=== PATIENT | male | born 1975 | race Caucasian/White ===

== ENCOUNTER 2020-03-18 00:49 | Observation (INO) | payer BC ==
[2020-03-18] MEDS ORDERED: Nitroglycerin 0.4 MG Tab.SL ONE (00:53)
[2020-03-18] MEDS ORDERED: Aspirin 81 MG Tab.Chew ONE (00:53)
[2020-03-18] MEDS ORDERED: Ticagrelor 90 MG Tab PO ONE ×2 (00:54→01:01)
[2020-03-18] MEDS: Nitroglycerin 0.4 MG Tab.SL SL PRN ×2 (01:00→01:15)
[2020-03-18] MEDS ORDERED: Aspirin 81 MG Tab.Chew PO ONE (01:01)
[2020-03-18] MEDS ORDERED: Sodium Chloride 0.9% 10 ML Syringe FLUSH PRN (01:01)
[2020-03-18 01:16] LABS: PTT,PARTIAL THROMBOPLSTIN TIME 27.2 SEC (24.5-32.8)
[2020-03-18] MEDS ORDERED: LORazepam 2 MG/ML SDV IVPUSH ONE ×3 (01:30→07:30)
[2020-03-18 01:35] LABS: CHLORIDE,CL 101 mmol/L (98-107); SODIUM,NA 138 mmol/L (136-145)
[2020-03-18] MEDS ORDERED: Potassium Chloride 20 MEQ Tab.ER PO ONE ×6 (01:37→14:30)
[2020-03-18] MEDS ORDERED: Sodium Chloride 0.9% 1,000 ML IV ONE ×2 (01:38→05:30)
--- NOTE | 2020-03-18 01:52 | EDM.PDOC ---
ED HPI GENERAL MEDICAL PROBLEM - General Chief Complaint: Chest Pain Stated Complaint: full body shaking, dry mouth Time Seen by Provider: 03/18/20 01:08 Source of Information: Reports: Patient History Limitations: Reports: No Limitations - History of Present Illness INITIAL COMMENTS - FREE TEXT/NARRATIVE: Patient was reading Bible before bed and suddenly felt his heart race/chest pain centrally. Mild SOB. No sweating. [place] jittery/shaky all over. Took BP and pulse at home. Pulse around 160s on a pulse ox. BP elevated 160s/90s. Chest pain went away when pulse rate started to slow. gave him 50mg Metoprol as she herself has tachycardia issues. Says he has small episodes of fast heart rate at times but they do not cause chest pain or other symptoms and resolve on own quickly. No formal workup for these. Denies cardiac history/family hx CAD. Admits to large daily caffeine intake, including energy drinks. Had recent cold symptoms and subsequently negative Covid test last week. Did have negative stress test a few years ago - Related Data Allergies Allergy/AdvReac Type Severity Reaction Status Date / Time acetaminophen [From Percocet] Allergy Hives Verified 03/18/20 00:51 oxycodone HCl [From Percocet] Allergy Hives Verified 03/18/20 00:51 Home Meds: Home Meds . [No Known Home Meds] 03/18/20 [History] Past Medical History HEENT History: Reports: Impaired Vision Cardiovascular History: Reports: Arrhythmia (tachycardia) Gastrointestinal History: Reports: None - Past Surgical History GI Surgical History: Reports: Hernia, Inguinal Social & Family History - Tobacco Use Smoking Status *Q: Current Every Day Smoker Years of Tobacco use: 20 Packs/Tins Daily: 0.5 - Caffeine Use Caffeine Use: Reports: Coffee, Energy Drinks, Soda - Alcohol Use Alcohol Use History: Yes Alcohol Use Frequency: Rarely - Recreational Drug Use Recreational Drug Use: No - Living Situation & Occupation Living situation: Reports: with Family, Occupation: Employed ED ROS GENERAL - Review of Systems Review Of Systems: See Below Constitutional: Reports: Other (general shakiness) HEENT: Reports: No Symptoms Respiratory: Reports: Shortness of Breath. Denies: Wheezing, Pleuritic Chest Pain, Cough, Sputum, Hemoptysis Cardiovascular: Reports: Chest Pain, Palpitations. Denies: Dyspnea on Exertion, Edema, Lightheadedness, Syncope GI/Abdominal: Reports: No Symptoms : Reports: No Symptoms Musculoskeletal: Reports: No Symptoms Skin: Reports: No Symptoms Neurological: Reports: No Symptoms Psychiatric: Reports: Anxiety Hematologic/Lymphatic: Reports: No Symptoms Immunologic: Reports: No Symptoms ED EXAM, GENERAL - Physical Exam Exam: See Below Exam Limited By: No Limitations General Appearance: Alert, WD/WN, Anxious Eye Exam: Bilateral Eye: EOMI, PERRL Ears: Hearing Grossly Normal Nose: No: Nasal Deformity, Nasal Swelling, Nasal Drainage Throat/Mouth: Normal Lips, Normal Voice, No Airway Compromise Head: Atraumatic, Normocephalic Neck: Supple, Non-Tender, Full Range of Motion Respiratory/Chest: No Respiratory Distress, Lungs Clear, Normal Breath Sounds, No Accessory Muscle Use, Chest Non-Tender Cardiovascular: Normal Peripheral Pulses, No Murmur, Tachycardia GI/Abdominal: Normal Bowel Sounds, Soft, Non-Tender, No Organomegaly, No Distention (Male) Exam: Deferred Rectal (Males) Exam: Deferred Back Exam: Normal Inspection Extremities: Normal Inspection, Normal Range of Motion, No Pedal Edema, Normal Capillary Refill Neurological: Alert, Oriented, Normal Cognition, Normal Gait, No Motor/Sensory Deficits Psychiatric: Anxious Skin Exam: Warm, Dry, Intact, Normal Color EKG INTERPRETATION EKG Date: 03/18/20 Time: 00:38 Rhythm: Other (Sinus Tach) Rate (Beats/Min): 109 [place]: Normal P-Wave: Present QRS: Normal ST-T: Other (Obvious ischemia not noted) QT: Normal Comparison: NA - No Prior EKG Course - Vital Signs Last Recorded V/S: Last Vital Signs Temp 37.3 C 03/18/20 01:43 Pulse 93 03/18/20 01:43 Resp 21 H 03/18/20 01:43 BP 118/77 03/18/20 01:43 Pulse Ox 99 03/18/20 01:43 - Orders/Labs/Meds Orders: Active Orders 24 hr Category Date Time Status EKG Documentation Completion [RC] ASDIRECTED Care 03/18/20 00:59 Active CXR [Chest 1V Frontal] [CR] Stat Exams 03/18/20 00:59 Taken Nitroglycerin [Nitrostat] Med 03/18/20 01:02 Active 0.4 mg SL Q5M PRN Potassium Chloride [Klor-Con M20] Med 03/18/20 03:00 Once 20 meq PO ONETIME ONE Sodium Chloride 0.9% [Normal Saline] 1,000 ml Med 03/18/20 01:38 Active IV .BOLUS Sodium Chloride 0.9% [Saline Flush] Med 03/18/20 01:01 Active 10 ml FLUSH ASDIRECTED PRN Saline Lock Insert [OM.PC] Routine Oth 03/18/20 01:01 Ordered Medication Orders Sodium Chloride (Normal Saline) 1,000 mls @ 250 mls/hr IV .BOLUS ONE Stop: 03/18/20 05:37 Last Admin: 03/18/20 01:46 Dose: 250 mls/hr Documented by: ELIANA Nitroglycerin (Nitrostat) 0.4 mg SL Q5M PRN PRN Reason: Chest Pain Last Admin: 03/18/20 01:15 Dose: 0.4 mg Documented by: Admin: 03/18/20 01:00 Dose: 0.4 mg Documented by: ELIANA Potassium Chloride (Klor-Con M20) 20 meq PO ONETIME ONE Stop: 03/18/20 03:01 Last Admin: 03/18/20 01:46 Dose: 20 meq Documented by: ELIANA Sodium Chloride (Saline Flush) 10 ml FLUSH ASDIRECTED PRN PRN Reason: Keep Vein Open Labs: Laboratory Tests 03/18/20 03/18/20 03/18/20 Range/Units 00:50 00:50 00:50 WBC 10.7 H (4.0-10.2) K/uL RBC 4.65 (4.33-5.41) M/uL Hgb 14.8 (13.1-16.8) g/dL Hct 43.3 (39.0-49.0) % MCV 93.1 (84.0-98.0) fL MCH 31.8 (28.2-33.3) pg MCHC 34.2 (31.7-36.0) g/dL RDW 13.4 (11.2-14.1) % Plt Count 280 (150-350) K/uL Neut % (Auto) 56.1 (45.0-80.0) % Lymph % (Auto) 31.2 (10.0-50.0) % [place] % (Auto) 10.0 (2.0-14.0) % Eos % (Auto) 2.3 (0.0-5.0) % Baso % (Auto) 0.4 (0.0-2.0) % Neut # (Auto) 5.99 (1.40-7.00) K/uL Lymph # (Auto) 3.33 (0.50-3.50) K/uL [place] # (Auto) 1.07 H (0.00-1.00) K/uL Eos # (Auto) 0.25 (0.00-0.50) K/uL Baso # (Auto) 0.04 (0.00-0.20) K/uL PT 10.2 (9.5-12.0) SEC INR 1.0 APTT 27.2 (24.5-32.8) SEC Sodium 138 (136-145) mmol/L Potassium 2.9 L* (3.5-5.1) mmol/L Chloride 101 (98-107) mmol/L Carbon Dioxide 24.9 (21.0-32.0) mmol/L BUN 15 (7-18) mg/dL Creatinine 0.86 (0.51-1.17) mg/dL Est Cr Clr Drug Dosing 111.90 mL/min Estimated GFR (MDRD) > 60 mL/min Glucose 133 H (74-106) mg/dL Lactic Acid (0.4-2.0) mmol/L Calcium 8.6 (8.5-10.1) mg/dL Magnesium 1.8 (1.8-2.4) mg/dL Total Bilirubin 0.4 (0.2-1.0) mg/dL AST 19 (15-37) U/L ALT 34 (12-78) U/L Alkaline Phosphatase 47 (46-116) IU/L Creatine Kinase 68 (26-308) U/L Creatine Kinase Index 0.6 (0.0-2.5) % CK-MB (CK-2) 0.40 (0.00-3.60) ng/mL Troponin I 0.000 (0.000-0.056) ng/mL NT-Pro-B Natriuret Pep 19 (0-125) pg/mL Total Protein 7.4 (6.4-8.2) g/dL Albumin 4.0 (3.4-5.0) g/dL TSH, Ultra Sensitive 1.318 (0.358-3.740) mIU/mL 03/18/20 Range/Units 00:50 WBC (4.0-10.2) K/uL RBC (4.33-5.41) M/uL Hgb (13.1-16.8) g/dL Hct (39.0-49.0) % MCV (84.0-98.0) fL MCH (28.2-33.3) pg MCHC (31.7-36.0) g/dL RDW (11.2-14.1) % Plt Count (150-350) K/uL Neut % (Auto) (45.0-80.0) % Lymph % (Auto) (10.0-50.0) % [place] % (Auto) (2.0-14.0) % Eos % (Auto) (0.0-5.0) % Baso % (Auto) (0.0-2.0) % Neut # (Auto) (1.40-7.00) K/uL Lymph # (Auto) (0.50-3.50) K/uL [place] # (Auto) (0.00-1.00) K/uL Eos # (Auto) (0.00-0.50) K/uL Baso # (Auto) (0.00-0.20) K/uL PT (9.5-12.0) SEC INR APTT (24.5-32.8) SEC Sodium (136-145) mmol/L Potassium (3.5-5.1) mmol/L Chloride (98-107) mmol/L Carbon Dioxide (21.0-32.0) mmol/L BUN (7-18) mg/dL Creatinine (0.51-1.17) mg/dL Est Cr Clr Drug Dosing mL/min Estimated GFR (MDRD) mL/min Glucose (74-106) mg/dL Lactic Acid 3.0 H (0.4-2.0) mmol/L Calcium (8.5-10.1) mg/dL Magnesium (1.8-2.4) mg/dL Total Bilirubin (0.2-1.0) mg/dL AST (15-37) U/L ALT (12-78) U/L Alkaline Phosphatase (46-116) IU/L Creatine Kinase (26-308) U/L Creatine Kinase Index (0.0-2.5) % CK-MB (CK-2) (0.00-3.60) ng/mL Troponin I (0.000-0.056) ng/mL NT-Pro-B Natriuret Pep (0-125) pg/mL Total Protein (6.4-8.2) g/dL Albumin (3.4-5.0) g/dL TSH, Ultra Sensitive (0.358-3.740) mIU/mL Meds: Medications Generic Name Dose Route Start Last Admin Trade Name Freserg PRN Reason Stop Dose Admin Sodium Chloride 1,000 mls @ 250 mls/hr 03/18/20 01:38 03/18/20 01:46 Normal Saline IV 03/18/20 05:37 250 mls/hr .BOLUS ONE Administration Nitroglycerin 0.4 mg 03/18/20 01:02 03/18/20 01:15 Nitrostat SL 0.4 mg Q5M PRN Administration Chest Pain Potassium Chloride 20 meq 03/18/20 03:00 03/18/20 01:46 Klor-Con M20 PO 03/18/20 03:01 20 meq ONETIME ONE Administration Sodium Chloride 10 ml 03/18/20 01:01 Saline Flush FLUSH ASDIRECTED PRN Keep Vein Open Discontinued Medications Generic Name Dose Route Start Last Admin Trade Name Desiree PRN Reason Stop Dose Admin Aspirin Confirm 03/18/20 00:53 03/18/20 01:06 Aspirin Administered 03/18/20 00:54 Not Given Dose 324 mg .ROUTE .STK-MED ONE Aspirin 324 mg 03/18/20 01:01 03/18/20 00:57 Aspirin PO 03/18/20 01:02 324 mg ONETIME ONE Administration Lorazepam 0.5 mg 03/18/20 01:30 03/18/20 01:36 Ativan IVPUSH 03/18/20 01:31 0.5 mg ONETIME ONE Administration Nitroglycerin Confirm 03/18/20 00:53 03/18/20 01:07 Nitrostat Administered 03/18/20 00:54 Not Given Dose 0.4 mg .ROUTE .STK-MED ONE Potassium Chloride 40 meq 03/18/20 01:37 03/18/20 01:45 Klor-Con M20 PO 03/18/20 01:38 40 meq ONETIME ONE Administration Ticagrelor Confirm 03/18/20 00:54 03/18/20 01:07 Brilinta Administered 03/18/20 00:55 Not Given Dose 180 mg PO .STK-MED ONE Ticagrelor 180 mg 03/18/20 01:01 03/18/20 00:57 Brilinta PO 03/18/20 01:02 180 mg ONETIME ONE Administration - Radiology Interpretation Free Text/Narrative:: Chest xray unremarkable for acute changes - Re-Assessments/Exams Free Text/Narrative Re-Assessment/Exam: 03/18/20 02:07 Chest pain protocol initiated upon arrival. Patient received Brillinta as well as ASA. EKG showed tachycardia. Patient stayed around 100-120 initially in ER then slowly dropped. He was given a 50mg Metoprolol tab by at home and no additional meds were given to slow rate down as it was felt that the overall improvement in rate we were observing compared to patient's report of rate in 160s at home was likely from that medicine. Patient very anxious. Ativan IV given. EKG/chest xray overall unremarkable. CBC/Chem/Trop/Mag/DDimer/proBNP/TSH/LA overall unremarkable except for lactic acid of 3 and K low at 2.9 No evidence of sepsis identified during history and exam. IV fluids ordered in addition to PO potassium. Patient continued to be pain free in ER with slowly improving heart rate and BP. Suspect anxiety is component of presenting complaint. Will admit observation and continue telemetry. Departure - Departure Time of Disposition: 02:00 Disposition: Refer to Observation Clinical Impression: Chest pain, Tachycardia - Discharge Information *PRESCRIPTION DRUG MONITORING PROGRAM REVIEWED*: Not Applicable *COPY OF PRESCRIPTION DRUG MONITORING REPORT IN PATIENT LINDSAY: Not Applicable Sepsis Event Note (ED) - Evaluation Sepsis Screening Result: No Definite Risk - Focused Exam Vital Signs: Vital Signs Temp Pulse Resp BP BP Pulse Ox 03/18/20 01:43 37.3 C 93 21 H 118/77 99 03/18/20 01:15 142/79 H 03/18/20 01:08 107 H 23 H 141/74 H 98 03/18/20 01:07 169/99 H 03/18/20 01:00 169/99 H 03/18/20 00:52 36.6 C 104 H 23 H 169/99 H 98 - Problem List & Annotations (1) Chest pain SNOMED Code(s): 70806864 Code(s): R07.9 - CHEST PAIN, UNSPECIFIED Status: Acute Priority: High Current Visit: Yes Onset Date: ~03/18/20 Annotation/Comment:: Pain resolved as tachycardia improved. Troponin negative. No evidence of acute ischemia at this time. Admit observation/telemetry. Repeat Troponins. Qualifiers: Chest pain type: unspecified Qualified Code(s): R07.9 - Chest pain, unspecified (2) Tachycardia SNOMED Code(s): 9198753 Code(s): R00.0 - TACHYCARDIA, UNSPECIFIED Status: Chronic Priority: High Current Visit: Yes Annotation/Comment:: Patient reports tachycardia episodes in past, but normally milder/shorter. Tonight's episode may have been influenced by hypokalemia. Admit observation. Recommend follow up with primary provider and referral to Cardiology for further evaluation after discharge. (3) Anxiety SNOMED Code(s): 91752736 Code(s): F41.9 - ANXIETY DISORDER, UNSPECIFIED Status: Acute Priority: Medium Current Visit: Yes Annotation/Comment:: Patient very anxious about tonight's episode. Does have high intake of caffeine daily which may be a factor. Counselled in ER to decrease intake/avoid energy drinks. Given Ativan IV one dose. (4) Hypokalemia SNOMED Code(s): 59768997 Code(s): E87.6 - HYPOKALEMIA Status: Acute Priority: Medium Current Visit: Yes Annotation/Comment:: Initiate oral supplementation. Recheck level later today. - Problem List Review Problem List Initiated/Reviewed/Updated: Yes - My Orders Last 24 Hours: My Active Orders 03/18/20 00:59 EKG Documentation Completion [RC] ASDIRECTED CXR [Chest 1V Frontal] [CR] Stat 03/18/20 01:01 Sodium Chloride 0.9% [Saline Flush] 10 ml FLUSH ASDIRECTED PRN Saline Lock Insert [OM.PC] Routine 03/18/20 01:02 Nitroglycerin [Nitrostat] 0.4 mg SL Q5M PRN 03/18/20 01:38 Sodium Chloride 0.9% [Normal Saline] 1,000 ml IV .BOLUS 03/18/20 03:00 Potassium Chloride [Klor-Con M20] 20 meq PO ONETIME ONE - Assessment/Plan Admission H&P: Please use this note as an admission H&P Last 24 Hours: My Active Orders 03/18/20 00:59 EKG Documentation Completion [RC] ASDIRECTED CXR [Chest 1V Frontal] [CR] Stat 03/18/20 01:01 Sodium Chloride 0.9% [Saline Flush] 10 ml FLUSH ASDIRECTED PRN Saline Lock Insert [OM.PC] Routine 03/18/20 01:02 Nitroglycerin [Nitrostat] 0.4 mg SL Q5M PRN 03/18/20 01:38 Sodium Chloride 0.9% [Normal Saline] 1,000 ml IV .BOLUS 03/18/20 03:00 Potassium Chloride [Klor-Con M20] 20 meq PO ONETIME ONE Assessment:: as above Plan: as above. Anticipate possible discharge this evening if patient's labs/hospital course unremarkable. Patient stable and suitable for general supervision.
[2020-03-18] MEDS ORDERED: Ondansetron 4 MG/2 ML SDV IVPUSH PRN (02:21)
[2020-03-18 08:29] LABS: BARBITURATE SCREEN,URINE NEGATIVE (NEGATIVE); BENZODIAZEPINES SCREEN,URINE NEGATIVE (NEGATIVE); EDDP,URINE SCREEN NEGATIVE (NEGATIVE); TCA SCREEN,URINE NEGATIVE (NEGATIVE); THC SCREEN,URINE 50 NG/ML POSITIVE (NEGATIVE)
[2020-03-18 16:17] LABS: CHLORIDE,CL 108 mmol/L (98-107); SODIUM,NA 142 mmol/L (136-145)
--- NOTE | 2020-03-18 16:33 | PCM.DCSUM1 ---
Discharge Summary - Hospital Course Brief History: Patient evaluated in ER for complaint of tachycardia/SOB/not feeling well. Admitted observation. Telemetry/serial troponin checks. Elevated Lactic Acid and low K also noted. Diagnosis: Stroke: No - Discharge Data Discharge Date: 03/18/20 Discharge Disposition: Home, Self-Care 01 Condition: Good - Referral to Home Health Primary Care Physician: PCP Unknown - Discharge Diagnosis/Problem(s) (1) Chest pain SNOMED Code(s): 51534576 ICD Code: R07.9 - CHEST PAIN, UNSPECIFIED Status: Acute Priority: High Current Visit: Yes Onset Date: ~03/18/20 Problem Details: Pain resolved as tachycardia improved. Serial troponin checks negative. No evidence of acute ischemia. Unremarkable telemetry. No return of tachycardia. Unremarkable EKG today. Qualifiers: Chest pain type: unspecified Qualified Code(s): R07.9 - Chest pain, unspecified (2) Tachycardia SNOMED Code(s): 1891440 ICD Code: R00.0 - TACHYCARDIA, UNSPECIFIED Status: Chronic Priority: High Current Visit: Yes Problem Details: Patient reports tachycardia episodes in past, but normally milder/shorter. Noted to have low potassium and borderline low Magnesium, both of which can be associated with tachy arrythmias. gave patient Metoprolol at home and it is suspected that it helped improve patient's rate last night. No further Cardizem or Metoprolol given. Potassium and Magnesium replacement given. No recurrence noted since admission. Recommend follow up with primary provider and referral to Cardiology for further evaluation after discharge. (3) Hypokalemia SNOMED Code(s): 89252484 ICD Code: E87.6 - HYPOKALEMIA Status: Acute Priority: Medium Current Visit: Yes Problem Details: Oral replacement initiated. Recheck showed normal level achieved. Recommend recheck again Thursday this week or Thursday next week. (4) Hypomagnesemia SNOMED Code(s): 528095612 ICD Code: E83.42 - HYPOMAGNESEMIA Status: Acute Priority: Medium Current Visit: Yes Problem Details: Borderline low Mag noted last night. Replacement therapy given due to anticipated further drop in level from IV fluids. Low mag levels have been associated with tachyarrhythmias. Recommend initiating oral supplement after discharge. (5) Anxiety SNOMED Code(s): 41120769 ICD Code: F41.9 - ANXIETY DISORDER, UNSPECIFIED Status: Acute Priority: Medium Current Visit: Yes Problem Details: Patient very anxious about tonight's episode. Does have high intake of caffeine daily which may be a factor. Counseled in ER to decrease intake/avoid energy drinks. Given Ativan IV one dose given in ER. (6) Elevated lactic acid level SNOMED Code(s): 9851629 ICD Code: R79.89 - OTHER SPECIFIED ABNORMAL FINDINGS OF BLOOD CHEMISTRY Status: Acute Priority: Medium Current Visit: Yes Problem Details: Lactic acid 3.0 at time of admission. No evidence sepsis/infection identified. Recheck of labs showed normalization of level after 1 liter of IV fluid. - Patient Summary/Data Hospital Course: Unremarkable hospital course. Heart rate/BP improved steadily after initial ER presentation. Lactic acid improved, suspect due to IV fluids. Normalization of potassium achieved through oral supplementation. Patient felt tired, suspect from the single dose of Ativan received last night in the ER. Serial troponin checks/telemetry unremarkable. OK to be discharged home with close follow up by primary provider. - Patient Instructions Diet: Anti-Inflammatory Activity: As Tolerated Driving: Do Not Drive Showering/Bathing: May Shower Other/Special Instructions: Recommend starting either Mag Glycinate or Mag Taurate supplement 250mg daily to help with Magnesium levels. Have your potassium level rechecked at your clinic this Thursday to make certain that it is still within normal level. Recheck again in one month. If it falls, you will need to start potassium supplementation with further level rechecks to make sure you are not getting too little or too much. Both low Mag and low K can trigger fast heart rates. Discuss Cardiology referral with your primary provider. You may benefit from evaluation and discussing treatment plan if you continue to get intermitten episodes of fast heart rate. Follow up in ER as needed if you have additional problems. - Discharge Plan *PRESCRIPTION DRUG MONITORING PROGRAM REVIEWED*: Not Applicable *COPY OF PRESCRIPTION DRUG MONITORING REPORT IN PATIENT [facility]: Not Applicable Home Medications: Home Meds . [No Known Home Meds] 03/18/20 [History] Forms: ED Department Discharge Referrals: PCP,Unknown [Primary Care Provider] - - Discharge Summary/Plan Comment DC Time >30 min.: No - General Info Date of Service: 03/18/20 Admission Dx/Problem (Free Text: Tachycardia, high lactic acid, low K Subjective Update: Patient tired but otherwise feels well. No acute complaints. Functional Status: Reports: Pain Controlled, Tolerating Diet, Ambulating, Urinating. Denies: New Symptoms - Review of Systems General: Reports: Fatigue. Denies: Fever, Malaise, Night Sweats HEENT: Reports: No Symptoms Pulmonary: Reports: No Symptoms Cardiovascular: Reports: No Symptoms. Denies: Chest Pain, Palpitations, Dyspnea on Exertion, Lightheadedness Gastrointestinal: Reports: No Symptoms Genitourinary: Reports: No Symptoms Musculoskeletal: Reports: No Symptoms Skin: Reports: No Symptoms Neurological: Reports: No Symptoms Psychiatric: Reports: No Symptoms - Patient Data Vitals - Most Recent: Last Vital Signs Temp 36.6 C 03/18/20 12:00 Pulse 67 03/18/20 12:00 Resp 16 03/18/20 12:00 BP 107/62 03/18/20 12:00 Pulse Ox 98 03/18/20 12:00 Weight - Most Recent: 57.652 kg I&O - Last 24 hours: Intake & Output 03/18/20 03/18/20 03/18/20 06:59 14:59 22:59 Intake Total 758 480 Balance 758 480 Lab Results - Last 24 hrs: Laboratory Results - last 24 hr 03/18/20 03/18/20 03/18/20 Range/Units 00:50 00:50 00:50 WBC 10.7 H (4.0-10.2) K/uL RBC 4.65 (4.33-5.41) M/uL Hgb 14.8 (13.1-16.8) g/dL Hct 43.3 (39.0-49.0) % MCV 93.1 (84.0-98.0) fL MCH 31.8 (28.2-33.3) pg MCHC 34.2 (31.7-36.0) g/dL RDW 13.4 (11.2-14.1) % Plt Count 280 (150-350) K/uL Neut % (Auto) 56.1 (45.0-80.0) % Lymph % (Auto) 31.2 (10.0-50.0) % [place] % (Auto) 10.0 (2.0-14.0) % Eos % (Auto) 2.3 (0.0-5.0) % Baso % (Auto) 0.4 (0.0-2.0) % Neut # (Auto) 5.99 (1.40-7.00) K/uL Lymph # (Auto) 3.33 (0.50-3.50) K/uL [place] # (Auto) 1.07 H (0.00-1.00) K/uL Eos # (Auto) 0.25 (0.00-0.50) K/uL Baso # (Auto) 0.04 (0.00-0.20) K/uL PT 10.2 (9.5-12.0) SEC INR 1.0 APTT 27.2 (24.5-32.8) SEC Sodium 138 (136-145) mmol/L Potassium 2.9 L* (3.5-5.1) mmol/L Chloride 101 (98-107) mmol/L Carbon Dioxide 24.9 (21.0-32.0) mmol/L BUN 15 (7-18) mg/dL Creatinine 0.86 (0.51-1.17) mg/dL Est Cr Clr Drug Dosing 111.90 mL/min Estimated GFR (MDRD) > 60 mL/min Glucose 133 H (74-106) mg/dL Lactic Acid (0.4-2.0) mmol/L Calcium 8.6 (8.5-10.1) mg/dL Magnesium 1.8 (1.8-2.4) mg/dL Total Bilirubin 0.4 (0.2-1.0) mg/dL AST 19 (15-37) U/L ALT 34 (12-78) U/L Alkaline Phosphatase 47 (46-116) IU/L Creatine Kinase 68 (26-308) U/L Creatine Kinase Index 0.6 (0.0-2.5) % CK-MB (CK-2) 0.40 (0.00-3.60) ng/mL Troponin I 0.000 (0.000-0.056) ng/mL NT-Pro-B Natriuret Pep 19 (0-125) pg/mL Total Protein 7.4 (6.4-8.2) g/dL Albumin 4.0 (3.4-5.0) g/dL TSH, Ultra Sensitive 1.318 (0.358-3.740) mIU/mL Specimen Type Urine Color Urine Appearance Urine pH (5.0-9.0) Ur Specific [place] (1.005-1.030) Urine Protein (NEGATIVE) mg/dL Urine Glucose (UA) (NEGATIVE) mg/dL Urine Ketones (NEGATIVE) mg/dL Urine Occult Blood (NEGATIVE) Urine Nitrite (NEGATIVE) Urine Bilirubin (NEGATIVE) Urine Urobilinogen (0.2-1.0) E.U./dL Ur Leukocyte Esterase (NEGATIVE) Urine RBC /HPF Urine WBC /HPF Ur Epithelial Cells /LPF Urine Bacteria (NONE TO FEW) /HPF Urine Opiates Screen (NEGATIVE) Ur Buprenorphine Scrn (NEGATIVE) Ur Oxycodone Screen (NEGATIVE) Ur EDDP (Meth Metab) (NEGATIVE) Ur Barbiturates Screen (NEGATIVE) Ur Tricyclics Screen (NEGATIVE) Ur Amphetamine Screen (NEGATIVE) U Methamphetamines Scrn (NEGATIVE) Urine MDMA Screen (NEGATIVE) U Benzodiazepines Scrn (NEGATIVE) U Cocaine Metab Screen (NEGATIVE) U Marijuana (THC) Screen (NEGATIVE) 03/18/20 03/18/20 03/18/20 Range/Units 00:50 02:44 02:44 WBC (4.0-10.2) K/uL RBC (4.33-5.41) M/uL Hgb (13.1-16.8) g/dL Hct (39.0-49.0) % MCV (84.0-98.0) fL MCH (28.2-33.3) pg MCHC (31.7-36.0) g/dL RDW (11.2-14.1) % Plt Count (150-350) K/uL Neut % (Auto) (45.0-80.0) % Lymph % (Auto) (10.0-50.0) % [place] % (Auto) (2.0-14.0) % Eos % (Auto) (0.0-5.0) % Baso % (Auto) (0.0-2.0) % Neut # (Auto) (1.40-7.00) K/uL Lymph # (Auto) (0.50-3.50) K/uL [place] # (Auto) (0.00-1.00) K/uL Eos # (Auto) (0.00-0.50) K/uL Baso # (Auto) (0.00-0.20) K/uL PT (9.5-12.0) SEC INR APTT (24.5-32.8) SEC Sodium (136-145) mmol/L Potassium (3.5-5.1) mmol/L Chloride (98-107) mmol/L Carbon Dioxide (21.0-32.0) mmol/L BUN (7-18) mg/dL Creatinine (0.51-1.17) mg/dL Est Cr Clr Drug Dosing mL/min Estimated GFR (MDRD) mL/min Glucose (74-106) mg/dL Lactic Acid 3.0 H (0.4-2.0) mmol/L Calcium (8.5-10.1) mg/dL Magnesium (1.8-2.4) mg/dL Total Bilirubin (0.2-1.0) mg/dL AST (15-37) U/L ALT (12-78) U/L Alkaline Phosphatase (46-116) IU/L Creatine Kinase (26-308) U/L Creatine Kinase Index (0.0-2.5) % CK-MB (CK-2) (0.00-3.60) ng/mL Troponin I (0.000-0.056) ng/mL NT-Pro-B Natriuret Pep (0-125) pg/mL Total Protein (6.4-8.2) g/dL Albumin (3.4-5.0) g/dL TSH, Ultra Sensitive (0.358-3.740) mIU/mL Specimen Type Urinblad Urine Color Yellow Urine Appearance Clear Urine pH 7.0 (5.0-9.0) Ur Specific [place] 1.020 (1.005-1.030) Urine Protein Negative (NEGATIVE) mg/dL Urine Glucose (UA) Negative (NEGATIVE) mg/dL Urine Ketones Negative (NEGATIVE) mg/dL Urine Occult Blood Negative (NEGATIVE) Urine Nitrite Negative (NEGATIVE) Urine Bilirubin Negative (NEGATIVE) Urine Urobilinogen 0.2 (0.2-1.0) E.U./dL Ur Leukocyte Esterase Negative (NEGATIVE) Urine RBC Not seen /HPF Urine WBC 0-5 /HPF Ur Epithelial Cells Not seen /LPF Urine Bacteria Rare (NONE TO FEW) /HPF Urine Opiates Screen Negative (NEGATIVE) Ur Buprenorphine Scrn Negative (NEGATIVE) Ur Oxycodone Screen Negative (NEGATIVE) Ur EDDP (Meth Metab) Negative (NEGATIVE) Ur Barbiturates Screen Negative (NEGATIVE) Ur Tricyclics Screen Negative (NEGATIVE) Ur Amphetamine Screen Negative (NEGATIVE) U Methamphetamines Scrn Negative (NEGATIVE) Urine MDMA Screen Negative (NEGATIVE) U Benzodiazepines Scrn Negative (NEGATIVE) U Cocaine Metab Screen Negative (NEGATIVE) U Marijuana (THC) Screen Positive H (NEGATIVE) 03/18/20 03/18/20 03/18/20 Range/Units 09:50 09:50 15:50 WBC 8.9 (4.0-10.2) K/uL RBC 4.26 L (4.33-5.41) M/uL Hgb 13.5 (13.1-16.8) g/dL Hct 40.4 (39.0-49.0) % MCV 94.8 (84.0-98.0) fL MCH 31.7 (28.2-33.3) pg MCHC 33.4 (31.7-36.0) g/dL RDW 13.4 (11.2-14.1) % Plt Count 241 (150-350) K/uL Neut % (Auto) 70.3 (45.0-80.0) % Lymph % (Auto) 18.3 (10.0-50.0) % [place] % (Auto) 8.2 (2.0-14.0) % Eos % (Auto) 3.0 (0.0-5.0) % Baso % (Auto) 0.2 (0.0-2.0) % Neut # (Auto) 6.28 (1.40-7.00) K/uL Lymph # (Auto) 1.63 (0.50-3.50) K/uL [place] # (Auto) 0.73 (0.00-1.00) K/uL Eos # (Auto) 0.27 (0.00-0.50) K/uL Baso # (Auto) 0.02 (0.00-0.20) K/uL PT (9.5-12.0) SEC INR APTT (24.5-32.8) SEC Sodium (136-145) mmol/L Potassium 3.8 (3.5-5.1) mmol/L Chloride (98-107) mmol/L Carbon Dioxide (21.0-32.0) mmol/L BUN (7-18) mg/dL Creatinine (0.51-1.17) mg/dL Est Cr Clr Drug Dosing mL/min Estimated GFR (MDRD) mL/min Glucose (74-106) mg/dL Lactic Acid 1.1 (0.4-2.0) mmol/L Calcium (8.5-10.1) mg/dL Magnesium (1.8-2.4) mg/dL Total Bilirubin (0.2-1.0) mg/dL AST (15-37) U/L ALT (12-78) U/L Alkaline Phosphatase (46-116) IU/L Creatine Kinase (26-308) U/L Creatine Kinase Index (0.0-2.5) % CK-MB (CK-2) (0.00-3.60) ng/mL Troponin I 0.000 (0.000-0.056) ng/mL NT-Pro-B Natriuret Pep (0-125) pg/mL Total Protein (6.4-8.2) g/dL Albumin (3.4-5.0) g/dL TSH, Ultra Sensitive (0.358-3.740) mIU/mL Specimen Type Urine Color Urine Appearance Urine pH (5.0-9.0) Ur Specific [place] (1.005-1.030) Urine Protein (NEGATIVE) mg/dL Urine Glucose (UA) (NEGATIVE) mg/dL Urine Ketones (NEGATIVE) mg/dL Urine Occult Blood (NEGATIVE) Urine Nitrite (NEGATIVE) Urine Bilirubin (NEGATIVE) Urine Urobilinogen (0.2-1.0) E.U./dL Ur Leukocyte Esterase (NEGATIVE) Urine RBC /HPF Urine WBC /HPF Ur Epithelial Cells /LPF Urine Bacteria (NONE TO FEW) /HPF Urine Opiates Screen (NEGATIVE) Ur Buprenorphine Scrn (NEGATIVE) Ur Oxycodone Screen (NEGATIVE) Ur EDDP (Meth Metab) (NEGATIVE) Ur Barbiturates Screen (NEGATIVE) Ur Tricyclics Screen (NEGATIVE) Ur Amphetamine Screen (NEGATIVE) U Methamphetamines Scrn (NEGATIVE) Urine MDMA Screen (NEGATIVE) U Benzodiazepines Scrn (NEGATIVE) U Cocaine Metab Screen (NEGATIVE) U Marijuana (THC) Screen (NEGATIVE) 03/18/20 03/18/20 Range/Units 15:50 15:50 WBC (4.0-10.2) K/uL RBC (4.33-5.41) M/uL Hgb (13.1-16.8) g/dL Hct (39.0-49.0) % MCV (84.0-98.0) fL MCH (28.2-33.3) pg MCHC (31.7-36.0) g/dL RDW (11.2-14.1) % Plt Count (150-350) K/uL Neut % (Auto) (45.0-80.0) % Lymph % (Auto) (10.0-50.0) % [place] % (Auto) (2.0-14.0) % Eos % (Auto) (0.0-5.0) % Baso % (Auto) (0.0-2.0) % Neut # (Auto) (1.40-7.00) K/uL Lymph # (Auto) (0.50-3.50) K/uL [place] # (Auto) (0.00-1.00) K/uL Eos # (Auto) (0.00-0.50) K/uL Baso # (Auto) (0.00-0.20) K/uL PT (9.5-12.0) SEC INR APTT (24.5-32.8) SEC Sodium 142 (136-145) mmol/L Potassium 4.0 (3.5-5.1) mmol/L Chloride 108 H (98-107) mmol/L Carbon Dioxide 26.7 (21.0-32.0) mmol/L BUN 13 (7-18) mg/dL Creatinine 0.77 (0.51-1.17) mg/dL Est Cr Clr Drug Dosing 101.91 mL/min Estimated GFR (MDRD) > 60 mL/min Glucose 102 (74-106) mg/dL Lactic Acid 1.0 (0.4-2.0) mmol/L Calcium 8.6 (8.5-10.1) mg/dL Magnesium (1.8-2.4) mg/dL Total Bilirubin (0.2-1.0) mg/dL AST (15-37) U/L ALT (12-78) U/L Alkaline Phosphatase (46-116) IU/L Creatine Kinase (26-308) U/L Creatine Kinase Index (0.0-2.5) % CK-MB (CK-2) (0.00-3.60) ng/mL Troponin I 0.000 (0.000-0.056) ng/mL NT-Pro-B Natriuret Pep (0-125) pg/mL Total Protein (6.4-8.2) g/dL Albumin (3.4-5.0) g/dL TSH, Ultra Sensitive (0.358-3.740) mIU/mL Specimen Type Urine Color Urine Appearance Urine pH (5.0-9.0) Ur Specific [place] (1.005-1.030) Urine Protein (NEGATIVE) mg/dL Urine Glucose (UA) (NEGATIVE) mg/dL Urine Ketones (NEGATIVE) mg/dL Urine Occult Blood (NEGATIVE) Urine Nitrite (NEGATIVE) Urine Bilirubin (NEGATIVE) Urine Urobilinogen (0.2-1.0) E.U./dL Ur Leukocyte Esterase (NEGATIVE) Urine RBC /HPF Urine WBC /HPF Ur Epithelial Cells /LPF Urine Bacteria (NONE TO FEW) /HPF Urine Opiates Screen (NEGATIVE) Ur Buprenorphine Scrn (NEGATIVE) Ur Oxycodone Screen (NEGATIVE) Ur EDDP (Meth Metab) (NEGATIVE) Ur Barbiturates Screen (NEGATIVE) Ur Tricyclics Screen (NEGATIVE) Ur Amphetamine Screen (NEGATIVE) U Methamphetamines Scrn (NEGATIVE) Urine MDMA Screen (NEGATIVE) U Benzodiazepines Scrn (NEGATIVE) U Cocaine Metab Screen (NEGATIVE) U Marijuana (THC) Screen (NEGATIVE) Med Orders - Current: Current Medications Nitroglycerin (Nitrostat) 0.4 mg SL Q5M PRN PRN Reason: Chest Pain Last Admin: 03/18/20 01:15 Dose: 0.4 mg Documented by: Ondansetron HCl (Zofran) 4 mg IVPUSH Q6H PRN PRN Reason: Nausea/Vomiting Sodium Chloride (Saline Flush) 10 ml FLUSH ASDIRECTED PRN PRN Reason: Keep Vein Open Discontinued Medications Aspirin (Aspirin) Confirm Administered Dose 324 mg .ROUTE .STK-MED ONE Stop: 03/18/20 00:54 Last Admin: 03/18/20 01:06 Dose: Not Given Documented by: Aspirin (Aspirin) 324 mg PO ONETIME ONE Stop: 03/18/20 01:02 Last Admin: 03/18/20 00:57 Dose: 324 mg Documented by: Sodium Chloride (Normal Saline) 1,000 mls @ 250 mls/hr IV .BOLUS ONE Stop: 03/18/20 05:37 Last Admin: 03/18/20 01:46 Dose: 250 mls/hr Documented by: Sodium Chloride (Normal Saline) 1,000 mls @ 200 mls/hr IV .BOLUS ONE Stop: 03/18/20 10:29 Last Admin: 03/18/20 06:13 Dose: 200 mls/hr Documented by: Magnesium Sulfate/Dextrose 1 (gm/ Premix) 100 mls @ 100 mls/hr IV ONETIME ONE Stop: 03/18/20 03:29 Last Admin: 03/18/20 02:59 Dose: 100 mls/hr Documented by: Lorazepam (Ativan) 0.5 mg IVPUSH ONETIME ONE Stop: 03/18/20 01:31 Last Admin: 03/18/20 01:36 Dose: 0.5 mg Documented by: Lorazepam (Ativan) 0.1 mg IVPUSH ONETIME ONE Stop: 03/18/20 07:31 Lorazepam (Ativan) 0.5 mg IVPUSH ONETIME ONE Stop: 03/18/20 07:31 Last Admin: 03/18/20 10:22 Dose: Not Given Documented by: Nitroglycerin (Nitrostat) Confirm Administered Dose 0.4 mg .ROUTE .STK-MED ONE Stop: 03/18/20 00:54 Last Admin: 03/18/20 01:07 Dose: Not Given Documented by: Potassium Chloride (Klor-Con M20) 40 meq PO ONETIME ONE Stop: 03/18/20 01:38 Last Admin: 03/18/20 01:45 Dose: 40 meq Documented by: Potassium Chloride (Klor-Con M20) 20 meq PO ONETIME ONE Stop: 03/18/20 03:01 Last Admin: 03/18/20 01:46 Dose: 20 meq Documented by: Potassium Chloride (Klor-Con M20) 20 meq PO ONETIME ONE Stop: 03/18/20 08:01 Last Admin: 03/18/20 08:27 Dose: 20 meq Documented by: Potassium Chloride (Klor-Con M20) 20 meq PO ONETIME ONE Stop: 03/18/20 05:31 Last Admin: 03/18/20 05:16 Dose: 20 meq Documented by: Potassium Chloride (Klor-Con M20) 40 meq PO ONETIME ONE Stop: 03/18/20 10:58 Last Admin: 03/18/20 11:30 Dose: 40 meq Documented by: Potassium Chloride (Klor-Con M20) 40 meq PO ONETIME ONE Stop: 03/18/20 14:31 Last Admin: 03/18/20 14:39 Dose: 40 meq Documented by: Ticagrelor (Brilinta) Confirm Administered Dose 180 mg PO .STK-MED ONE Stop: 03/18/20 00:55 Last Admin: 03/18/20 01:07 Dose: Not Given Documented by: Ticagrelor (Brilinta) 180 mg PO ONETIME ONE Stop: 03/18/20 01:02 Last Admin: 03/18/20 00:57 Dose: 180 mg Documented by: - Exam General: Reports: Alert, Oriented, Cooperative, No Acute Distress HEENT: Reports: Pupils Equal, EOMI, Mucous Membr. Moist/[place] Neck: Reports: Supple Lungs: Reports: Clear to Auscultation, Normal Respiratory Effort Cardiovascular: Reports: Regular Rate, Regular Rhythm GI/Abdominal Exam: Normal Bowel Sounds, Soft, Non-Tender, No Distention (Male) Exam: Deferred Rectal (Males) Exam: Deferred Back Exam: Denies: Muscle Spasm Extremities: Non-Tender, Normal Capillary Refill Skin: Reports: Warm, Dry Neurological: Reports: No New Focal Deficit Psy/Mental Status: Reports: Alert, Normal Affect, Normal Mood EKG INTERPRETATION EKG Date: 03/18/20 Time: 08:22 Rhythm: NSR Rate (Beats/Min): 66 [place]: Normal P-Wave: Present QRS: Normal ST-T: Normal QT: Normal Comparison: Change From Previous EKG (no longer tachycardic)
== END 2020-03-18 17:13 | disposition home or self-care (01) ==
LOC: LL.ED 00:49 → LL.MS 01:52 → UNDOADMOB 01:52 → LL.MS 02:03 → UNDODISOB 17:13 → LL.MS 17:13
PROVIDERS: ADMIT Emergency Medicine; ATTEND Emergency Medicine
DX: R07.9 Chest pain, unspecified (principal); R00.0 Tachycardia, unspecified; F41.9 Anxiety disorder, unspecified; E87.6 Hypokalemia; E83.42 Hypomagnesemia; R79.89 Other specified abnormal findings of blood chemistry; R06.02 Shortness of breath; F17.210 Nicotine dependence, cigarettes, uncomplicated; Z88.6 Allergy status to analgesic agent
CPT/HCPCS: 36415; 71045; 80048; 80053; 80305; 81001; 82550; 82553; 83605; 83735; 83880; 84132; 84443; 84484; 85025; 85610; 85730; 93005; 96361; 96365; 96374; 99285; A9270; G0378; J2060; J3475; J7030; 96375

== ENCOUNTER 2024-01-31 16:11 | Emergency (ER) | payer BC ==
[2024-01-31] MEDS ORDERED: Sodium Chloride 0.9% 10 ML Syringe FLUSH PRN (16:20)
[2024-01-31 16:34] LABS: BASOPHILS ABSOLUTE AUTO 0.03 K/uL (0.00-0.20); BASOPHILS PERCENT AUTO 0.3 % (0.0-2.0); EOSINOPHILS ABSOLUTE AUTO 0.14 K/uL (0.00-0.50); EOSINOPHILS PERCENT AUTO 1.5 % (0.0-5.0); HEMATOCRIT 42.2 % (39.0-49.0); HEMOGLOBIN 14.5 g/dL (13.1-16.8); LYMPHOCYTES ABSOLUTE AUTO 2.15 K/uL (0.50-3.50); LYMPHOCYTES PERCENT AUTO 22.6 % (10.0-50.0); MEAN CORPUSCULAR HEMOGLOBIN 32.2 pg (28.2-33.3); MEAN CORPUSCULAR HGB CONC 34.4 g/dL (31.7-36.0); MEAN CORPUSCULAR VOLUME 93.6 fL (84.0-98.0); MONOCYTES ABSOLUTE AUTO 0.83 K/uL (0.00-1.00); MONOCYTES PERCENT AUTO 8.7 % (2.0-14.0); NEUTROPHILS ABSOLUTE AUTO 6.35 K/uL (1.40-7.00); NEUTROPHILS PERCENT AUTO 66.9 % (45.0-80.0); PLATELET COUNT,PLT 266 K/uL (150-350); RED BLOOD CELL COUNT 4.51 M/uL (4.33-5.41); RED CELL DISTRIBUTION WIDTH 13.6 % (11.2-14.1); WHITE BLOOD CELL COUNT,WBC 9.5 K/uL (4.0-10.2)
[2024-01-31] MEDS: Diltiazem 25 MG/5 ML SDV IVPUSH ONE ×2 (16:34→17:02)
[2024-01-31] MEDS: Aspirin 81 MG Tab.Chew PO ONE (16:40)
[2024-01-31 16:57] LABS: ALANINE AMINOTRANSFERASE,ALT 29 U/L (12-78); ALBUMIN 3.7 g/dL (3.4-5.0); ALKALINE PHOSPHATASE 49 IU/L (46-116); ASPARTATE AMNIOTRANSFERASE,AST 14 U/L (15-37); BILIRUBIN TOTAL 0.4 mg/dL (0.2-1.0); BLOOD UREA NITROGEN,BUN 20 mg/dL (7-18); CALCIUM 8.2 mg/dL (8.5-10.1); CARBON DIOXIDE,CO2 23.2 mmol/L (21.0-32.0); CHLORIDE,CL 104 mmol/L (98-107); CREATININE 1.05 mg/dL (0.51-1.17); EST CRCL DRUG DOSING (CG) 87.91 mL/min; GLUCOSE RANDOM 132 mg/dL (70-99); MAGNESIUM 1.7 mg/dL (1.8-2.4); POTASSIUM,K 3.4 mmol/L (3.5-5.1); SODIUM,NA 140 mmol/L (136-145)
[2024-01-31] MEDS: LORazepam 1 MG Tab PO ONE (17:01)
[2024-01-31 17:02] LABS: ANION GAP 16.2 meq/L (7-15); ESTIMATED GFR 89 mL/min (>=60)
[2024-01-31 17:19] LABS: ETHANOL BLOOD MEDICAL 0.003 g/dL (0.000-0.080)
[2024-01-31] MEDS: Potassium Bicarbonate/Cit Ac 20 MEQ Effervescent Tab PO ONE (17:21)
[2024-01-31 17:41] LABS: PRO B-TYPE NATRIUR PEPT,BNPPRO 23 pg/mL (0-125)
[2024-01-31 21:04] LABS: TSH ULTRASENSITIVE 0.754 mIU/mL (0.358-3.740)
[2024-02-03 19:47] LABS: THYROGLOBULIN AB <0.9 IU/mL (0.0-4.0); THYROID PEROX AB <0.3 IU/mL (0.0-9.0)
[2024-02-04 05:47] LABS: THYROID STIM IMMUN <0.10 IU/L (<=0.54)
== END 2024-01-31 19:50 | disposition home or self-care (01) ==
LOC: LL.ED 16:11
DX: R00.0 Tachycardia, unspecified (principal); I10 Essential (primary) hypertension; E83.42 Hypomagnesemia; E87.6 Hypokalemia; R94.6 Abnormal results of thyroid function studies; J44.9 Chronic obstructive pulmonary disease, unspecified; F17.210 Nicotine dependence, cigarettes, uncomplicated; Z88.8 Allergy status to other drugs, medicaments and biological substances; Z79.899 Other long term (current) drug therapy
CPT/HCPCS: 36415; 71045; 80053; 80307; 83605; 83735; 83880; 84439; 84443; 84445; 84480; 84484; 85025; 85379; 86376; 86800; 93005; 96365; 96375; 99284; 99285; A9270; J3475; J3490